=== PATIENT | female | born 1965 | race Caucasian/White ===

== ENCOUNTER 2018-12-13 12:13 | Emergency (ER) | payer OTHER ==
[2018-12-13] MEDS: ONDANSETRON (ODT) 4 MG TAB ODT (14:19)
[2018-12-13] MEDS: DEXAMETHASONE 10 MG/ML 1 ML INJ IM (14:20)
[2018-12-13] MEDS: MECLIZINE 12.5 MG TAB PO (14:20)
== END 2018-12-13 14:45 | disposition home or self-care (01) ==
LOC: FTE 14:45
DX: R42 Dizziness and giddiness (principal); R11.0 Nausea
CPT/HCPCS: 96372; 99284-25